=== PATIENT | male | born 1950 | race Caucasian/White ===

== ENCOUNTER → 2020-04-02 09:22 | Outpatient (BNVA) | payer BC, SELFPAY | PROVIDERS: PCP Family Medicine; Visit Provider Hospitalist | DX: Z13.89 Encounter for screening for other disorder (principal) ==

== ENCOUNTER → 2021-04-02 09:43 | Outpatient (BNVA) | payer BC, SELFPAY | PROVIDERS: PCP Family Medicine; Visit Provider Hospitalist ==

== ENCOUNTER → 2021-08-19 14:17 | Outpatient (BNVA) | payer BC, SELFPAY | PROVIDERS: PCP Family Medicine; Visit Provider Psychiatry & Neurology Neurology | DX: G47.33 Obstructive sleep apnea (adult) (pediatric) (principal); G47.52 REM sleep behavior disorder; G20 Parkinson's disease; Z87.891 Personal history of nicotine dependence; Z99.89 Dependence on other enabling machines and devices | CPT/HCPCS: Q3014 ==

== ENCOUNTER → 2021-10-01 13:11 | Outpatient (BNVA) | payer BC, SELFPAY | PROVIDERS: PCP Family Medicine; Visit Provider Hospitalist | DX: Z13.89 Encounter for screening for other disorder (principal) ==

== ENCOUNTER → 2022-06-08 14:18 | Outpatient (BNVA) | payer BC, SELFPAY | PROVIDERS: PCP Family Medicine; Visit Provider Psychiatry & Neurology Neurology | DX: Z79.899 Other long term (current) drug therapy (principal) ==

== ENCOUNTER → 2022-09-22 13:45 | Outpatient (BNVA) | payer BC, SELFPAY | PROVIDERS: PCP Family Medicine; Visit Provider Psychiatry & Neurology Neurology | DX: Z13.89 Encounter for screening for other disorder (principal) ==

== ENCOUNTER 2023-01-25 14:05 | Outpatient (AMB) | payer BC, SELFPAY ==
--- NOTE | 2023-01-25 14:02 | MHC.OFFVIS ---
Intake Intake Visit Reasons: 3 mnts f/u appt-confirmed Allergies No Known Allergies Allergy (Verified 09/22/22 13:50) PFSH Medical History Abnormal endoscopy of upper gastrointestinal tract Diabetes Hyperlipidemia MADISON on CPAP Surgical History H/O colonoscopy Family History Mother CAD (coronary artery disease) Father Leukemia Other HTN (hypertension) Social History Alcohol intake: current Alcohol intake frequency: holidays/special occasions only Patient Tobacco Use Status: Former Tobacco user Tobacco use type: Cigarette Years Smoked: 10 Years Coding Diagnoses
[2023-01-25 14:06] VITALS: BP 118/72; PULSE 88; O2SAT 94; BMI 33.5
--- NOTE | 2023-01-25 14:06 | MHC.OFFVIS ---
Intake Vital Signs 01/25/23 14:06 Height 5 ft 8 in Weight 220 lb 8 oz BMI 33.5 BP 118/72 Blood Pressure Location Lt brachial Position Sitting Pulse 88 Pulse Source Pulse Oximeter Pulse Oximetry (%) 94 Oxygen Delivery Method Room Air Intake Visit Reasons: 3 mnts f/u appt-confirmed Intake Note: Pt presents to the office today for a 3 month follow up. Pt states he is still using his CPAP machine every night. Pt states he thinks the CPAP is helping. His states he still has some night terrors occasionally and she noticed his right hand has been a little more shaky. Accompanied by: Spouse Allergies No Known Allergies Allergy (Verified 01/25/23 14:09) HPI HPI Comments History of Present Illness Details 72-year-old male comes for follow-up of Parkinsons disease and sleep apnea. He reports REM behavior disorder is better with clonazepam and melatonin 5mg qhs 1-2 times a week he still has some RBD.No injuries. He says his medications are helping but the symptoms have mildly progressed. His right hand tremors are more persistent now. He is active. Sinemet 25/100 2 tabs tid is helping He reports word finding difficulty . He golfs in summer and stays active in winter by walking. He denies any falls . he denies any memory issues no hallucinations. He is compliant with CPAP 99% compliance. AHI 5 He is independent in all ADLS Bowel movements are regular [facility] Medical History Abnormal endoscopy of upper gastrointestinal tract Diabetes Hyperlipidemia MADISON on CPAP Surgical History H/O colonoscopy Family History Mother CAD (coronary artery disease) Father Leukemia Other HTN (hypertension) Social History Alcohol intake: current Alcohol intake frequency: holidays/special occasions only Patient Tobacco Use Status: Former Tobacco user Tobacco use type: Cigarette Years Smoked: 10 Years Physical Exam Vital Signs: Last Vital Signs Pulse 88 01/25/23 14:06 BP 118/72 01/25/23 14:06 Pulse Ox 94 01/25/23 14:06 Oxygen Delivery Method Room Air 01/25/23 14:06 BMI result Body Mass Index 33.5 Const General: cooperative, healthy appearing and comfortable Nutritional Appearance: overweight Orientation/consciousness: patient oriented x3 Neuro Other: Mild decreased facial expression and blink. Speech normal. Right UE mild rest tremors noticed. Mild decrease fine finger movements and foot taps right more than left. Mild stoop and good stride , severely decreased arm swing on the right Speech softer Hunter 1 cog wheel rigidty General: patient oriented x3 Motor exam (neuro): 5/5 motor strength present throughout Assessment & Plan Assessment & Plan (1) Parkinson's disease: Code(s): G20 - Parkinson's disease (2) REM behavioral disorder: Code(s): G47.52 - REM sleep behavior disorder (3) MADISON on CPAP: Code(s): G47.33 - Obstructive sleep apnea (adult) (pediatric); Z99.89 - Dependence on other enabling machines and devices Plan carbidopa levodopa 25/100 2 tabs 3 times a day. Continue citalopram 20 mg per day. Increase cloanzepam 1mg qhs Continue melatonin 5 mg q.h.s. and titrate up to 10 mg q.h.s. for REM behavior disorder. Continue CPAP and compliance stressed. Medications: Changed From clonazepam 1/2 to 1tab qhs orally bedtime; administer 30 minutes before bedtime 30 tabs 3RF To clonazepam 1/2 to 1tab qhs orally bedtime; administer 30 minutes before bedtime 30 tabs 3RF Coding Level of Care Code Est Pt Level 4 (23204) Diagnoses Parkinson's disease G20 REM behavioral disorder G47.52 MADISON on CPAP G47.33; Z99.89
== END 2023-01-25 14:26 | disposition home or self-care (01) ==
PROVIDERS: Visit Provider Psychiatry & Neurology Neurology
DX: G20 Parkinson's disease (principal); G47.52 REM sleep behavior disorder; G47.33 Obstructive sleep apnea (adult) (pediatric); Z99.89 Dependence on other enabling machines and devices
CPT/HCPCS: 99214

== ENCOUNTER → 2023-01-25 14:05 | Outpatient (BNVA) | payer BC, SELFPAY | PROVIDERS: Visit Provider Psychiatry & Neurology Neurology | DX: G20 Parkinson's disease (principal); G47.52 REM sleep behavior disorder; G47.33 Obstructive sleep apnea (adult) (pediatric); Z99.89 Dependence on other enabling machines and devices ==

== ENCOUNTER 2023-03-28 14:32 | Outpatient (AMB) | payer BC, SELFPAY ==
[2023-03-28 14:32] VITALS: BP 132/72; PULSE 75; O2SAT 97; BMI 34.0
--- NOTE | 2023-03-28 14:32 | A.OFFVIS_ITS ---
Intake Vital Signs 03/28/23 14:32 Height 5 ft 8 in Weight 223 lb 12.307 oz BMI 34.0 BP 132/72 Blood Pressure Location Rt brachial Position Sitting Pulse 75 Pulse Source Doppler Pulse Oximetry (%) 97 Oxygen Delivery Method Room Air Intake Visit Reasons: Dyspnea Allergies No Known Allergies Allergy (Verified 03/28/23 14:36) HPI HPI Comments History of Present Illness Details The patient is a 72-year-old gentleman with a known history of obstructive sleep apnea. He has been tolerating his CPAP therapy without any difficulty for many years. The CPAP therapy continues to be affecting beneficial. He does have underlying cardiovascular risk factors. He does uses CPAP more than 4 hours a night. He has been having issues in the being able to get supplies from his [employer] company. Will make sure to resolve that issue. In the meantime also requested to download to further adjust his PAP therapy. Otherwise he is without any other respiratory complaints. 03/28/2023 the patient is here for a [facility] follow-up visit. The patient overall is doing well. He continues to tolerate the CPAP without any difficulties. He does use a fullface mask. No significant leakage. His AHI continues to be below 5. He does use it for more than 4 hours a night. Appears to the Parkinson's disease is stable. Will continue with current CPAP settings and will request additional supplies to be provided for the patient. Denies any respiratory complaints. Will follow in a year's time. [facility] Medical History Abnormal endoscopy of upper gastrointestinal tract Diabetes Hyperlipidemia MADISON on CPAP Surgical History H/O colonoscopy Family History Mother CAD (coronary artery disease) Father Leukemia Other HTN (hypertension) Social History Alcohol intake: current Alcohol intake frequency: holidays/special occasions only Patient Tobacco Use Status: Former Tobacco user Tobacco use type: Cigarette Years Smoked: 10 Years Review of Systems Const Denies night sweats ENT Denies change in voice, Denies lip swelling, Denies mouth pain and Denies tongue swelling Card Denies chest pain Resp Reports cough GI Denies abdominal pain Musc Denies no additional complaints Neuro Reports Neuro-related abnormal movements and Reports tremor(s) Psych Denies no additional complaints Sahil/Lymph Denies easy bleeding and Denies lymphadenopathy Aller/Immun Denies lip swelling and Denies tongue swelling Physical Exam Vital Signs: Last Vital Signs Pulse 75 03/28/23 14:32 BP 132/72 03/28/23 14:32 Pulse Ox 97 03/28/23 14:32 Oxygen Delivery Method Room Air 03/28/23 14:32 BMI result Body Mass Index 34.0 Const General: alert and other (tremor) Neck Neck: Yes normal visual inspection, Yes full ROM and Yes no lymphadenopathy Chest Chest palpation & inspection: normal inspection of the chest Resp Effort & Inspection: normal respiratory effort Auscultation: diminished lung sounds Cardio Rate: regular rate Rhythm: regular rhythm Heart sounds: S1 normal heart sound present and S2 normal heart sound present GI Palpation (GI): Soft to palpation and nontender Auscultation: normal bowel sounds Skin General skin exam: rashes and/or lesions noted Neuro Motor exam (neuro): Tremors during motor activity present Extrem General: Yes no clubbing, cyanosis or edema Assessment & Plan Assessment & Plan (1) MADISON on CPAP: Code(s): G47.33 - Obstructive sleep apnea (adult) (pediatric); Z99.89 - Dependence on other enabling machines and devices Plan: Continue APAP therapy. Needs to get supplies from his DME ([employer]) Plan APAP 8-14 F/U 12 months Coding Level of Care Code Est Pt Level 3 (83703) Diagnoses MADISON on CPAP G47.33; Z99.89 Time Spent (min) 15
== END 2023-03-28 14:49 | disposition home or self-care (01) ==
PROVIDERS: PCP Family Medicine; Visit Provider Hospitalist
DX: G47.33 Obstructive sleep apnea (adult) (pediatric) (principal); Z99.89 Dependence on other enabling machines and devices
CPT/HCPCS: 99213

== ENCOUNTER → 2023-03-28 14:32 | Outpatient (BNVA) | payer BC, SELFPAY | PROVIDERS: PCP Family Medicine; Visit Provider Hospitalist ==

== ENCOUNTER 2023-06-01 13:49 | Outpatient (AMB) | payer BC, SELFPAY ==
--- NOTE | 2023-06-01 13:53 | MHC.OFFVIS ---
Intake Vital Signs 06/01/23 13:58 Height 5 ft 8 in Weight 223 lb 8 oz BMI 34.0 BP 156/92 H Blood Pressure Location Rt brachial Position Sitting Respiration 15 Pulse 61 Pulse Source Pulse Oximeter Pulse Oximetry (%) 96 Oxygen Delivery Method Room Air Intake Visit Reasons: 4m follow up - Confirmed Intake Note: Pt presents to the office for a 4 month follow up for Parkinson's and MADISON with CPAP. Hitcher Required: No Allergies No Known Allergies Allergy (Verified 06/01/23 14:03) Medication List - Last Reconciled 06/01/23 by Carrie Cleveland MD atorvastatin 80 mg PO DAILY carbidopa-levodopa 25-100 mg 2 tabs PO TID 90 days citalopram 20 mg PO DAILY clonazepam 1/2 to 1tab qhs orally bedtime; administer 30 minutes before bedtime CPAP (CPAP Machine/Device) As directed flu vacc [id number](65yr up)-PF mL IM losartan 50 mg PO DAILY melatonin 5 mg PO .qhs metformin ER 500 mg PO BID omeprazole 20 mg PO DAILY HPI HPI Comments History of Present Illness Details 73-year-old male comes for follow-up of Parkinsons disease and sleep apnea( sees Dr. Foote) He reports REM behavior disorder and is on clonazepam and melatonin 5mg qhs 1-2 times a week he still has some RBD. No injuries. His anxiety is worse. He says his medications are helping but the symptoms have mildly progressed. His right hand tremors are more persistent now. He is active. Sinemet 25/100 2 tabs tid is helping He reports word finding difficulty . He golfs in summer and stays active in winter by walking. He denies any falls . he denies any memory issues no hallucinations. He is compliant with CPAP 99% compliance. AHI 5 He is independent in all ADLS Bowel movements are regular [facility] Medical History (Updated 06/01/23 @ 14:33 by Carrie Cleveland MD) Parkinson's disease without dyskinesia or fluctuating manifestations Hyperlipidemia Diabetes Abnormal endoscopy of upper gastrointestinal tract MADISON on CPAP Surgical History H/O colonoscopy Family History Mother CAD (coronary artery disease) Father Leukemia Other HTN (hypertension) Social History Alcohol intake: current Alcohol intake frequency: holidays/special occasions only Patient Tobacco Use Status: Former Tobacco user Tobacco use type: Cigarette Years Smoked: 10 Years Physical Exam Vital Signs: Last Vital Signs Pulse 61 06/01/23 13:58 Resp 15 06/01/23 13:58 BP 156/92 H 06/01/23 13:58 Pulse Ox 96 06/01/23 13:58 Oxygen Delivery Method Room Air 06/01/23 13:58 BMI result Body Mass Index 34.0 Const General: cooperative, healthy appearing and comfortable Nutritional Appearance: overweight Orientation/consciousness: patient oriented x3 Neuro Other: Mild decreased facial expression and blink. Speech normal. Right UE mild rest tremors noticed. Mild decrease fine finger movements and foot taps right more than left. Mild stoop and good stride , severely decreased arm swing on the right Speech softer Hunter 1 cog wheel rigidty General: patient oriented x3 Motor exam (neuro): 5/5 motor strength present throughout Assessment & Plan Assessment & Plan (1) Parkinson's disease without dyskinesia or fluctuating manifestations: Code(s): G20.A1 - Parkinson's disease without dyskinesia, without mention of fluctuations (2) MADISON on CPAP: Code(s): G47.33 - Obstructive sleep apnea (adult) (pediatric); Z99.89 - Dependence on other enabling machines and devices (3) REM behavioral disorder: Code(s): G47.52 - REM sleep behavior disorder Plan Increase melatonin 10mg qhs clonazepam 1 mg qhs sinemet 25/100 2tabs tid PT- [facility] Coding Level of Care Code Est Pt Level 4 (52088) Diagnoses Parkinson's disease without dyskinesia or fluctuating manifestations G20.A1 MADISON on CPAP G47.33; Z99.89 REM behavioral disorder G47.52
[2023-06-01 13:58] VITALS: BP 156/92; PULSE 61; RESP 15; O2SAT 96; BMI 34.0
== END 2023-06-01 14:42 | disposition home or self-care (01) ==
PROVIDERS: PCP Family Medicine; Visit Provider Psychiatry & Neurology Neurology
DX: G20.A1 Parkinson's disease without dyskinesia, without mention of fluctuations (principal); G47.33 Obstructive sleep apnea (adult) (pediatric); Z99.89 Dependence on other enabling machines and devices; G47.52 REM sleep behavior disorder
CPT/HCPCS: 99214

== ENCOUNTER → 2023-06-01 13:49 | Outpatient (BNVA) | payer BC, SELFPAY | PROVIDERS: PCP Family Medicine; Visit Provider Psychiatry & Neurology Neurology | DX: G47.52 REM sleep behavior disorder (principal); G47.33 Obstructive sleep apnea (adult) (pediatric); Z99.89 Dependence on other enabling machines and devices ==

== ENCOUNTER 2024-02-13 13:50 | Outpatient (AMB) | payer OTHER, SELFPAY ==
--- NOTE | 2024-02-13 14:01 | MHC.OFFVIS ---
Vital Signs 02/13/24 14:02 Height 5 ft 8 in Weight 213 lb BMI 32.4 BP 98/60 Blood Pressure Location Rt brachial Position Sitting Respiration 16 Pulse 88 Pulse Source Pulse Oximeter Pulse Oximetry (%) 96 Oxygen Delivery Method Room Air Intake Visit Reasons: 6 mon follow up Intake Note: Pt presents to the office for 8 month follow up for MADISON. Operations Architect Required: No Allergies No Known Allergies Allergy (Verified 02/13/24 14:01) HPI Comments Details: 73-year-old male comes for follow-up of Parkinsons disease and sleep apnea( sees Dr. Foote) Parkinsons is stable.he reports tongue movements - dyskinesias usually towards the later part of the day. It does not bother him. He reports REM behavior disorder and is on clonazepam and melatonin 5mg qhs and is better. He had 2 episodes since last visit. He drinks 2 beers day , more on weekends , once in a while he drinks hard liquor . His anxiety is stable. His reports a brief staring episode 3- 4 times since last visit lasting 3- sec to 1 min. His right hand tremors are more persistent now. He is active. Sinemet 25/100 2 tabs tid is helping He reports word finding difficulty . He golfs in summer and stays active in winter by walking. He denies any falls . he denies any memory issues no hallucinations. He is compliant with CPAP 99% compliance. AHI 5 He is independent in all ADLS Bowel movements are regular [facility] Medical History Parkinson's disease without dyskinesia or fluctuating manifestations Hyperlipidemia Diabetes Abnormal endoscopy of upper gastrointestinal tract MADISON on CPAP Surgical History H/O colonoscopy Family History Mother CAD (coronary artery disease) Father Leukemia Other HTN (hypertension) Social History Alcohol intake: current Alcohol intake frequency: holidays/special occasions only Patient Tobacco Use Status: Former Tobacco user Tobacco use type: Cigarette Years Smoked: 10 Years Physical Exam Vital Signs: Last Vital Signs Pulse 88 02/13/24 14:02 Resp 16 02/13/24 14:02 BP 98/60 02/13/24 14:02 Pulse Ox 96 02/13/24 14:02 Oxygen Delivery Method Room Air 02/13/24 14:02 BMI result Body Mass Index 32.4 Const General: cooperative, healthy appearing and comfortable Nutritional Appearance: overweight Orientation/consciousness: oriented to time and patient oriented x3 Neuro Other: Abnormal tongue movements and tongue tremors. Mild decreased facial expression and blink. Speech normal. Right UE mild rest tremors noticed. Mild decrease fine finger movements and foot taps right more than left. Mild stoop and good stride , severely decreased arm swing on the right Speech softer Hunter 1 cog wheel rigidty General: oriented to time and patient oriented x3 Motor exam (neuro): 5/5 motor strength present throughout Assessment & Plan Assessment & Plan (1) Parkinson's disease without dyskinesia or fluctuating manifestations: Code(s): G20.A1 - Parkinson's disease without dyskinesia, without mention of fluctuations Category: Medical (2) MADISON on CPAP: Code(s): G47.33 - Obstructive sleep apnea (adult) (pediatric); Z99.89 - Dependence on other enabling machines and devices Category: Medical (3) REM behavioral disorder: Code(s): G47.52 - REM sleep behavior disorder Category: Medical Plan melatonin 5 mg qhs clonazepam 1 mg qhs sinemet 25/100 2tabs tid will consider PT for winter Counselled about decreased alcohol intake Coding Level of Care Code Est Pt Level 4 (17776) Complex EM visit Add On G2211 Diagnoses Parkinson's disease without dyskinesia or fluctuating manifestations G20.A1 MADISON on CPAP G47.33; Z99.89 REM behavioral disorder G47.52
[2024-02-13 14:02] VITALS: BP 98/60; PULSE 88; RESP 16; O2SAT 96; BMI 32.4
== END 2024-02-13 14:34 | disposition home or self-care (01) ==
PROVIDERS: PCP Family Medicine; Visit Provider Psychiatry & Neurology Neurology
DX: G20.A1 Parkinson's disease without dyskinesia, without mention of fluctuations (principal); G47.33 Obstructive sleep apnea (adult) (pediatric); Z99.89 Dependence on other enabling machines and devices; G47.52 REM sleep behavior disorder
CPT/HCPCS: 99214; G2211

== ENCOUNTER → 2024-02-13 13:50 | Outpatient (BNVA) | payer OTHER, SELFPAY | PROVIDERS: PCP Family Medicine; Visit Provider Psychiatry & Neurology Neurology | DX: G20.A1 Parkinson's disease without dyskinesia, without mention of fluctuations (principal); G47.33 Obstructive sleep apnea (adult) (pediatric); G47.52 REM sleep behavior disorder; Z99.89 Dependence on other enabling machines and devices; Z71.41 Alcohol abuse counseling and surveillance of alcoholic | CPT/HCPCS: 99212 ==

== ENCOUNTER 2024-03-27 14:25 | Outpatient (AMB) | payer MEDICARE, SELFPAY ==
--- NOTE | 2024-03-27 14:27 | MHC.OFFVIS ---
Vital Signs 03/27/24 14:28 Weight 219 lb 5.759 oz BP 120/62 Blood Pressure Location Lt brachial Position Sitting Pulse 72 Pulse Source Pulse Oximeter Pulse Oximetry (%) 94 Oxygen Delivery Method Room Air Intake Visit Reasons: Obstructive sleep apnea Intake Note: trouble getting CPAP supplies Allergies No Known Allergies Allergy (Verified 03/27/24 14:32) Medication List - Last Reconciled 03/27/24 by Salma Scott LPN atorvastatin 80 mg PO DAILY carbidopa-levodopa 25-100 mg 2 tabs PO TID 90 days citalopram 20 mg PO DAILY clonazepam 1/2 to 1tab qhs orally bedtime; administer 30 minutes before bedtime CPAP (CPAP Machine/Device) As directed flu vacc [id number](65yr up)-PF mL IM losartan 50 mg PO DAILY melatonin 5 mg PO .qhs metformin ER 500 mg PO BID omeprazole 20 mg PO DAILY HPI Comments Details: The patient is a 73-year-old gentleman with a known history of obstructive sleep apnea. He has been tolerating his CPAP therapy without any difficulty for many years. The CPAP therapy continues to be affecting beneficial. He does have underlying cardiovascular risk factors. He does uses CPAP more than 4 hours a night. He has been having issues in the being able to get supplies from his [employer] Will make sure to resolve that issue. In the meantime also requested to download to further adjust his PAP therapy. Otherwise he is without any other respiratory complaints. 03/28/2023 the patient is here for a pulmonary follow-up visit. The patient overall is doing well. He continues to tolerate the CPAP without any difficulties. He does use a fullface mask. No significant leakage. His AHI continues to be below 5. He does use it for more than 4 hours a night. Appears to the Parkinson's disease is stable. Will continue with current CPAP settings and will request additional supplies to be provided for the patient. Denies any respiratory complaints. Will follow in a year's time. 03/27/2024 the patient is here for a pulmonary follow-up visit. Overall he is doing okay. He continues uses CPAP every night. He did bring his CPAP with him. He has a [employer]. I did download the data. His AHI is 5.3. He is using it an average of 7 hours. The therapy has been affecting beneficial. Although with his insurance we had to change DME companies. We are switching over from and to regional. I did call region to make sure they had all the information and they do in the waiting for approval from the insurance company. Based on the fact that his AHI was a little elevated I did increase the pressures from 8-14 to 9-16. Therefore, will he will try the higher pressure and wait for new supplies from the DME company. If any issues arise he will call. From a respiratory status doing okay. He does have the Parkinson's. No difficulty swallowing that he has noticed as of yet. No significant shortness of breath. [facility] Medical History Parkinson's disease without dyskinesia or fluctuating manifestations Hyperlipidemia Diabetes Abnormal endoscopy of upper gastrointestinal tract MADISON on CPAP Surgical History H/O colonoscopy Family History Mother CAD (coronary artery disease) Father Leukemia Other HTN (hypertension) Social History Alcohol intake: current Alcohol intake frequency: holidays/special occasions only Patient Tobacco Use Status: Former Tobacco user Tobacco use type: Cigarette Years Smoked: 10 Years Review of Systems Const Denies night sweats ENT Denies change in voice, Denies lip swelling, Denies mouth pain and Denies tongue swelling Card Denies chest pain Resp Reports cough GI Denies abdominal pain Musc Denies no additional complaints Neuro Reports Neuro-related abnormal movements and Reports tremor(s) Psych Denies no additional complaints Sahil/Lymph Denies easy bleeding and Denies lymphadenopathy Aller/Immun Denies lip swelling and Denies tongue swelling Physical Exam Vital Signs: Last Vital Signs Pulse 72 03/27/24 14:28 BP 120/62 03/27/24 14:28 Pulse Ox 94 03/27/24 14:28 Oxygen Delivery Method Room Air 03/27/24 14:28 Const General: alert and other (tremor) Neck Neck: Yes normal visual inspection, Yes full ROM and Yes no lymphadenopathy Chest Chest palpation & inspection: normal inspection of the chest Resp Effort & Inspection: normal respiratory effort Auscultation: diminished lung sounds Cardio Rate: regular rate Rhythm: regular rhythm Heart sounds: S1 normal heart sound present and S2 normal heart sound present GI Palpation (GI): Soft to palpation and nontender Auscultation: normal bowel sounds Skin General skin exam: rashes and/or lesions noted Neuro Motor exam (neuro): Tremors during motor activity present Extrem General: Yes no clubbing, cyanosis or edema Assessment & Plan Assessment & Plan (1) MADISON on CPAP: Code(s): G47.33 - Obstructive sleep apnea (adult) (pediatric); Z99.89 - Dependence on other enabling machines and devices Category: Medical Plan: Continue APAP therapy. Needs to get supplies from his DME ([facility]) Plan APAP 814->9-16 Needs PAP supplies [facility] due to [facility] F/U 12 months Coding Level of Care Code Est Pt Level 4 (49137) Diagnoses MADISON on CPAP G47.33; Z99.89 Time Spent (min) 16
[2024-03-27 14:28] VITALS: BP 120/62; PULSE 72; O2SAT 94
== END 2024-03-27 14:48 | disposition home or self-care (01) ==
LOC: HO.HPS 14:26
PROVIDERS: PCP Family Medicine; Visit Provider Hospitalist
DX: G47.33 Obstructive sleep apnea (adult) (pediatric) (principal); Z99.89 Dependence on other enabling machines and devices
CPT/HCPCS: 99214

== ENCOUNTER → 2024-03-27 14:25 | Outpatient (BNVA) | payer MEDICARE, SELFPAY | PROVIDERS: PCP Family Medicine; Visit Provider Hospitalist | DX: G47.33 Obstructive sleep apnea (adult) (pediatric) (principal); Z99.89 Dependence on other enabling machines and devices | CPT/HCPCS: 99212 ==

== ENCOUNTER 2024-07-20 13:51 | Outpatient (AMB) | payer MEDICARE, SELFPAY ==
--- NOTE | 2024-07-20 14:01 | A.OFFVIS_ITS ---
Vital Signs 07/20/24 14:02 Height 5 ft 8 in Weight 220 lb BMI 33.4 BP 110/70 Blood Pressure Location Rt brachial Position Sitting Pulse 85 Pulse Source Pulse Oximeter Pulse Oximetry (%) 96 Oxygen Delivery Method Room Air Intake Visit Reasons: 6 mon follow up Intake Note: follow up parkinson's disease compliance report scanned. Allergies No Known Allergies Allergy (Verified 07/20/24 14:04) Medication List - Last Reconciled 07/20/24 by Carrie Cleveland MD ascorbic acid (vitamin C) 1 g PO Q6H atorvastatin 80 mg PO DAILY carbidopa-levodopa 25-100 mg 2 tabs PO TID 90 days citalopram 20 mg PO DAILY clonazepam 1/2 to 1tab qhs orally bedtime; administer 30 minutes before bedtime CPAP (CPAP Machine/Device) As directed flu vacc [id number](65yr up)-PF mL IM losartan 50 mg PO DAILY melatonin 5 mg PO .qhs metformin ER 500 mg PO BID multivitamin 1 tab PO DAILY omega 0-rqn-liu-fish oil 100-160-1,000 mg (Fish Oil) caps PO omeprazole 20 mg PO DAILY HPI Comments Details: 74-year-old male comes for follow-up of Parkinsons disease and sleep apnea( sees Dr. Foote) Parkinsons is stable.he reports tongue movements - dyskinesias usually towards the later part of the day. It does not bother him. He reports REM behavior disorder and is on clonazepam and melatonin 5mg qhs and he still has vivid dreams 5 days a night. He drinks 2 beers day , more on weekends , once in a while he drinks hard liquor . His anxiety is stable. His right hand tremors are more persistent now. He is active. Sinemet 25/100 2 tabs tid is helping He reports word finding difficulty . He golfs in summer and stays active in winter by walking. He denies any falls . he denies any memory issues no hallucinations. He is independent in all ADLS Bowel movements are regular [facility] Medical History Parkinson's disease without dyskinesia or fluctuating manifestations Hyperlipidemia Diabetes Abnormal endoscopy of upper gastrointestinal tract MADISON on CPAP Surgical History H/O colonoscopy Family History Mother CAD (coronary artery disease) Father Leukemia Other HTN (hypertension) Social History Alcohol intake: current Alcohol intake frequency: holidays/special occasions only Patient Tobacco Use Status: Former Tobacco user Tobacco use type: Cigarette Years Smoked: 10 Years Physical Exam Vital Signs: Last Vital Signs Pulse 85 07/20/24 14:02 BP 110/70 07/20/24 14:02 Pulse Ox 96 07/20/24 14:02 Oxygen Delivery Method Room Air 07/20/24 14:02 BMI result Body Mass Index 33.4 Const General: cooperative, healthy appearing and comfortable Nutritional Appearance: overweight Orientation/consciousness: oriented to time and patient oriented x3 Neuro Other: Abnormal tongue movements and tongue tremors. Mild decreased facial expression and blink. Speech normal. Right UE mild rest tremors noticed. Mild decrease fine finger movements and foot taps right more than left. Mild stoop and good stride , severely decreased arm swing on the right Speech softer Hunter 1 cog wheel rigidty General: oriented to time and patient oriented x3 Motor exam (neuro): 5/5 motor strength present throughout Assessment & Plan Assessment & Plan (1) Parkinson's disease without dyskinesia or fluctuating manifestations: Code(s): G20.A1 - Parkinson's disease without dyskinesia, without mention of fluctuations Category: Medical (2) MADISON on CPAP: Code(s): G47.33 - Obstructive sleep apnea (adult) (pediatric); Z99.89 - Dependence on other enabling machines and devices Category: Medical (3) REM behavioral disorder: Code(s): G47.52 - REM sleep behavior disorder Category: Medical Plan melatonin 5 mg qhs clonazepam 1 mg qhs Change sinemet 25/100 1 1 /2 tabs at 8am 12 noon, 4 pm, 8 pm Amantadine 100mg 1 /2 tab 8am and 1/2 at 4 pm will consider PT for winter Counselled about decreased alcohol intake Orders: Orders MR head/brain wo con Today G20.A1 - Parkinson's disease without dyskinesia, without mention of fluctuations Medications: New amantadine HCl 8.30am and 4pm 50 mg (1/2 x 100 mg) PO BID 30 tabs 6RF Coding Level of Care Code Est Pt Level 4 (85383) Complex EM visit Add On G2211 Diagnoses Parkinson's disease without dyskinesia or fluctuating manifestations G20.A1 MADISON on CPAP G47.33; Z99.89 REM behavioral disorder G47.52
[2024-07-20 14:02] VITALS: BP 110/70; PULSE 85; O2SAT 96; BMI 33.4
--- OUTSIDE RECORDS SUMMARY | 2024-07-20 14:18 | XMS_ITS | Encounter Summary ---
Author Organization [facility] Address [address] [place] [address] Care Team Providers Care Cut Press Operator Name Role Phone Chris Reddy DO Primary Care Provider Unava ilable Encounter Details Date Type Department Care Team Description 05/08/2018 Orders Only Pulmonology - [address] [place] [address] Al Foote MD Social History Tobacco Use Types Packs/Day Years Used Date Smoking Tobacco: Former Smokeless Tobacco: Never Sex Assigned at Date Recorded Not on file documented as of this encounter Plan of Treatment Not on file documented as of this encounter Visit Diagnoses Not on filedocumented in this encounter Care Teams Cut Press Operator Relationship Specialty Start Date End Date Chris Reddy DO PCP - General Family Practice 05/26/17 documented as of this encounter
--- OUTSIDE RECORDS SUMMARY | 2024-07-20 14:18 | XMS_ITS | Clinical Summary ---
Author Organization [facility] Address [address] [address] Care Team Providers Care Precision Assembly Inspector Name Role Phone Reddy, Gary Divine PIERCE Primary Care Provider [phone] Medications aspirin 81 MG chewable tablet Chew 81 mg 1 (one) time each day Active metFORMIN (GLUCOPHAGE) 500 MG tablet Take 500 mg by mouth in the morning and 500 mg in the evening. Take with meals. Active cyanocobalamin (VITAMIN B-12) 1000 MCG tablet Take 1,000 mcg by mouth 1 (one) time each day Active Active Problems Problem Noted Date Diagnosed Date Anemia in chronic kidney disease 01/25/2022 Type 2 diabetes mellitus with diabetic polyneuro aby 01/25/2022 Disorder of carotid artery 01/25/2022 Type 2 diabetes mellitus wit h diabetic autonomic (poly)neuropathy 01/25/2022 Peripheral vascular disease 01/25/2022 Prostate cancer care review done 01/25/2022 Social History Tobacco Use Types Packs/Day Years Used Date Smoking Tobacco: Former Cigarettes Smokeless Tobacco: Never Tobacco Cessation:Counseling Given: Not Answered Sex and Gender Information Value Date Recorded Sex Assigned at Not on file Legal Sex Male 1:13 PM EDT Gender Identity Not on file Sexual Orientation Not on file Plan of Treatment Health Maintenance Due Date Last Done Comments Colorectal Cancer Screening: Annual FOBT 1998 Colorectal Cancer Screening: Colonoscopy 1998 Colorectal Cancer Screening: Sigmoidoscopy 1998 Hepatitis B Vaccine (1 of 3 - Risk 3-dose series) 2009 Pneumococcal Vaccine: 65+ Ye ars (2 of 2 - PCV) 08/14/2013 08/14/2012 Diabetes: Hemoglobin A1C 02/12/2021 Diabetes: Ophthalmology Exam 02/12/2021 Diabetes: Pedal Pulse Checked 02/12/2021 Diabetes: Sensory Foot Exam 02/12/2021 Diabetes: Visual Foot Exam 02/12/2021 Influenza Vaccine (#1) 2024 9, 02/22/2013, 02/24/2012, Additional history exists Insurance [facility] Care Teams Precision Assembly Inspector Relationship Specialty Start Date End Date Chris Reddy DO [address] [place] [address] PCP - General Family Medicine 01/19/21
== END 2024-07-20 14:24 | disposition home or self-care (01) ==
PROVIDERS: PCP Family Medicine; Visit Provider Psychiatry & Neurology Neurology
DX: G20.A1 Parkinson's disease without dyskinesia, without mention of fluctuations (principal); G47.33 Obstructive sleep apnea (adult) (pediatric); Z99.89 Dependence on other enabling machines and devices; G47.52 REM sleep behavior disorder
CPT/HCPCS: 99214; G2211

== ENCOUNTER → 2024-07-20 13:51 | Outpatient (BNVA) | payer MEDICARE, SELFPAY | PROVIDERS: PCP Family Medicine; Visit Provider Psychiatry & Neurology Neurology | DX: G20.A1 Parkinson's disease without dyskinesia, without mention of fluctuations (principal); G47.33 Obstructive sleep apnea (adult) (pediatric); G47.52 REM sleep behavior disorder; Z99.89 Dependence on other enabling machines and devices | CPT/HCPCS: 99212 ==

== ENCOUNTER 2024-11-21 13:46 | Outpatient (AMB) | payer MEDICARE, SELFPAY ==
[2024-11-21 13:51] VITALS: BP 114/70; BMI 32.4
--- NOTE | 2024-11-21 13:51 | A.OFFVIS_ITS ---
Vital Signs 11/21/24 13:51 Height 5 ft 8 in Weight 213 lb BMI 32.4 BP 114/70 Blood Pressure Location Rt brachial Position Sitting Intake Visit Reasons: 6 mon follow up Intake Note: Patient presents for follow up brain MRI 08/22/24 Allergies No Known Allergies Allergy (Verified 11/21/24 13:52) Medication List - Last Reconciled 11/21/24 by Carrie Cleveland MD amantadine HCl 100 mg PO BID ascorbic acid (vitamin C) 1 g PO Q6H atorvastatin 80 mg PO DAILY carbidopa-levodopa 25-100 mg 2 tabs PO TID 90 days citalopram 20 mg PO DAILY clonazepam 1/2 to 1tab qhs orally bedtime; administer 30 minutes before bedtime CPAP (CPAP Machine/Device) As directed flu vacc [id number](65yr up)-PF mL IM losartan 50 mg PO DAILY melatonin 5 mg PO .qhs metformin ER 500 mg PO BID multivitamin 1 tab PO DAILY omega 0-nlj-xhv-fish oil 100-160-1,000 mg (Fish Oil) caps PO omeprazole 20 mg PO DAILY HPI Comments Details: 74-year-old male comes for follow-up of Parkinsons disease and sleep apnea( sees Dr. Foote) Parkinsons is stable.he reports tongue movements - dyskinesias usually towards the later part of the day. Amantadine helped initially but has breakthrough symptoms now. He reports REM behavior disorder and is on clonazepam and melatonin 5mg qhs and he still has 1-2 times a week. He drinks 1 beer a day His anxiety is stable. His right hand tremors are more persistent now. He is active. Sinemet 25/100 1 1/2 tabs qid t is helping He reports word finding difficulty . He golfs in summer and stays active in winter by walking. He denies any falls . he denies any memory issues no hallucinations. He is independent in all ADLS Bowel movements are regular [facility] Medical History Parkinson's disease without dyskinesia or fluctuating manifestations Hyperlipidemia Diabetes Abnormal endoscopy of upper gastrointestinal tract MADISON on CPAP Surgical History H/O colonoscopy Family History Mother CAD (coronary artery disease) Father Leukemia Other HTN (hypertension) Social History Alcohol intake: current Alcohol intake frequency: holidays/special occasions only Patient Tobacco Use Status: Former Tobacco user Tobacco use type: Cigarette Years Smoked: 10 Years Physical Exam Vital Signs: Last Vital Signs BP 114/70 11/21/24 13:51 BMI result Body Mass Index 32.4 Const General: cooperative, healthy appearing and comfortable Nutritional Appearance: overweight Orientation/consciousness: oriented to time and patient oriented x3 Neuro Other: Abnormal tongue movements and tongue tremors- milder than last visit Mild decreased facial expression and blink. Speech normal. Right UE mild rest tremors noticed. Mild decrease fine finger movements and foot taps right more than left. Mild stoop and good stride , severely decreased arm swing on the right Speech softer Hunter 1 cog wheel rigidty General: oriented to time and patient oriented x3 Motor exam (neuro): 5/5 motor strength present throughout Assessment & Plan Assessment & Plan (1) Parkinson's disease without dyskinesia or fluctuating manifestations: Code(s): G20.A1 - Parkinson's disease without dyskinesia, without mention of fluctuations Category: Medical (2) MADISON on CPAP: Code(s): G47.33 - Obstructive sleep apnea (adult) (pediatric); Z99.89 - Dependence on other enabling machines and devices Category: Medical (3) REM behavioral disorder: Code(s): G47.52 - REM sleep behavior disorder Category: Medical Plan melatonin 5 mg qhs clonazepam 1 mg qhs Change sinemet 25/100 1 1 /2 tabs at 8am 12 noon, 4 pm, 8 pm Increase Amantadine 100mg 1 tab 8am and 1 at 4 pm PT - wants in [place] Counselled about decreased alcohol intake Orders: Orders PT Evaluation and Treatment Today G20.A1 - Parkinson's disease without dyskinesia, without mention of fluctuations Medications: Changed From amantadine HCl 8.30am and 4pm 50 mg (1/2 x 100 mg) PO BID 30 tabs 6RF To amantadine HCl 8.30am and 4pm 100 mg PO BID 60 tabs 6RF Coding Level of Care Code Est Pt Level 4 (79753) Complex EM visit Add On G2211 Diagnoses Parkinson's disease without dyskinesia or fluctuating manifestations G20.A1 MADISON on CPAP G47.33; Z99.89 REM behavioral disorder G47.52
--- OUTSIDE RECORDS SUMMARY | 2024-11-21 16:21 | XMS_ITS | Patient Health Record ---
Author Organization [facility] Address [address] [place] [id number] Care Team Providers Care Tufting Creeler Name Role Phone Helder Claros Jr Reason For Referral No Information Plan Of Treatment No Information
== END 2024-11-21 14:38 | disposition home or self-care (01) ==
LOC: HO.HSMS 13:46
PROVIDERS: PCP Family Medicine; Visit Provider Psychiatry & Neurology Neurology
DX: G20.A1 Parkinson's disease without dyskinesia, without mention of fluctuations (principal); G47.33 Obstructive sleep apnea (adult) (pediatric); Z99.89 Dependence on other enabling machines and devices; G47.52 REM sleep behavior disorder
CPT/HCPCS: 99214; G2211

== ENCOUNTER → 2024-11-21 13:46 | Outpatient (BNVA) | payer MEDICARE, SELFPAY | PROVIDERS: PCP Family Medicine; Visit Provider Psychiatry & Neurology Neurology | DX: G20.A1 Parkinson's disease without dyskinesia, without mention of fluctuations (principal); G47.33 Obstructive sleep apnea (adult) (pediatric); Z99.89 Dependence on other enabling machines and devices; G47.52 REM sleep behavior disorder | CPT/HCPCS: 99212 ==

== ENCOUNTER 2025-03-26 14:31 | Outpatient (AMB) | payer MEDICARE, SELFPAY ==
[2025-03-26 14:34] VITALS: BP 110/60; PULSE 79; O2SAT 97; BMI 31.0
--- NOTE | 2025-03-26 14:34 | A.OFFVIS_ITS ---
Vital Signs 03/26/25 14:34 Height 5 ft 8 in Weight 203 lb 14.841 oz BMI 31.0 BP 110/60 Blood Pressure Location Lt brachial Position Sitting Pulse 79 Pulse Source Pulse Oximeter Pulse Oximetry (%) 97 Oxygen Delivery Method Room Air Intake Visit Reasons: Obstructive sleep apnea Topper Packer Required: No Accompanied by: Spouse Allergies No Known Allergies Allergy (Verified 03/26/25 14:38) HPI Comments Details: The patient is a 74-year-old gentleman with a known history of obstructive sleep apnea. He has been tolerating his CPAP therapy without any difficulty for many years. The CPAP therapy continues to be affecting beneficial. He does have underlying cardiovascular risk factors. He does uses CPAP more than 4 hours a night. He has been having issues in the being able to get supplies from his DME company. Will make sure to resolve that issue. In the meantime also requested to download to further adjust his PAP therapy. Otherwise he is without any other respiratory complaints. 03/28/2023 the patient is here for a pulmonary follow-up visit. The patient o caleb is doing well. He continues to tolerate the CPAP without any difficulties. He does use a fullface mask. No significant leakage. His AHI continues to be below 5. He does use it for more than 4 hours a night. Appears to the Parkinson's disease is stable. Will continue with current CPAP settings and will request additional supplies to be provided for the patient. Denies any respiratory complaints. Will follow in a year's time. 03/27/2024 the patient is here for a pulmonary follow-up visit. Overall he is doing okay. He continues uses CPAP every night. He did bring his CPAP with him. He has a dream Station 2. I did download the data. His AHI is 5.3. He is using it an average of 7 hours. The therapy has been affecting beneficial. Although with his insurance we had to change DME companies. We are switching over from and to [facility]. I did call region to make sure they had all the information and they do in the waiting for approval from the insurance company. Based on the fact that his AHI was a little elevated I did increase the pressures from 8-14 to 9-16. Therefore, will he will try the higher pressure and wait for new supplies from the DME company. If any issues arise he will call. From a respiratory status doing okay. He does have the Parkinson's. No difficulty swallowing that he has noticed as of yet. No significant shortness of breath. 03/26/2025 the patient is here for pulmonary follow-up visit. Overall the patient is doing well. He continues uses CPAP. His mask was changed to an F30 but he did not tolerate it. Therefore, he went back to the AirTouch F20 medium mask. Seems to be working well for him. He uses his CPAP every night. CPAP therapy has been affecting beneficial he does use it for more than 4 hours a night. We did adjust the pressures the last time seems to be tolerating it well. The patient denies any significant shortness of breath. He is not using any inhalers. He continues to follow closely with Neurology regarding his Parkinson's. Otherwise no other issues at this time. If any issues arise she can always call further recommendations. Otherwise follow-up in a year's time. [facility] Medical History (Updated 03/26/25 @ 20:33 by Al Foote MD) Insomnia Parkinson's disease without dyskinesia or fluctuating manifestations Hyperlipidemia Diabetes Abnormal endoscopy of upper gastrointestinal tract MADISON on CPAP Surgical History H/O colonoscopy Family History Mother CAD (coronary artery disease) Father Leukemia Other HTN (hypertension) Social History Alcohol intake: current Alcohol intake frequency: holidays/special occasions only Patient Tobacco Use Status: Former Tobacco user Tobacco use type: Cigarette Years Smoked: 10 Years Review of Systems Const Denies night sweats ENT Denies change in voice, Denies lip swelling, Denies mouth pain and Denies tongue swelling Card Denies chest pain Resp Reports cough GI Denies abdominal pain Musc Denies no additional complaints Neuro Reports Neuro-related abnormal movements and Reports tremor(s) Psych Denies no additional complaints Sahil/Lymph Denies easy bleeding and Denies lymphadenopathy Aller/Immun Denies lip swelling and Denies tongue swelling Physical Exam Vital Signs: Last Vital Signs Pulse 79 03/26/25 14:34 BP 110/60 03/26/25 14:34 Pulse Ox 97 03/26/25 14:34 Oxygen Delivery Method Room Air 03/26/25 14:34 BMI result Body Mass Index 31.0 Const General: alert and other (tremor) Neck Neck: Yes normal visual inspection, Yes full ROM and Yes no lymphadenopathy Chest Chest palpation & inspection: normal inspection of the chest Resp Effort & Inspection: normal respiratory effort Auscultation: diminished lung sounds Cardio Rate: regular rate Rhythm: regular rhythm Heart sounds: S1 normal heart sound present and S2 normal heart sound present GI Palpation (GI): Soft to palpation and nontender Auscultation: normal bowel sounds Skin General skin exam: rashes and/or lesions noted Neuro Motor exam (neuro): Tremors during motor activity present Extrem General: Yes no clubbing, cyanosis or edema Assessment & Plan Assessment & Plan (1) MADISON on CPAP: Code(s): G47.33 - Obstructive sleep apnea (adult) (pediatric); Z99.89 - Dependence on other enabling machines and devices Category: Medical Plan: Continue APAP therapy. Needs to get supplies from his DME ([employer]) (2) Insomnia: Code(s): G47.00 - Insomnia, unspecified Category: Medical Qualifiers: Insomnia type: primary Qualified Code(s): F51.01 - Primary insomnia Plan APAP 9-16 Needs PAP supplies regional continue Melatonin Behavioral sleep therapy F/U 12 months Coding Level of Care Code Est Pt Level 4 (61250) Diagnoses MADISON on CPAP G47.33; Z99.89 Primary insomnia F51.01 Insomnia type: primary Time Spent (min) 16
--- OUTSIDE RECORDS SUMMARY | 2025-03-26 18:55 | XMS_ITS | Clinical Summary ---
Author Organization [facility] Facility Address [address] [address] Care Team Providers Care Cut Roll Machine Operator Name Role Phone Reddy, Gary Divine PIERCE Primary Care Provider [phone] Medications aspirin 81 MG chewable tablet Chew [...] - Risk 3-dose series) 2009 Pneumococcal Vaccine: 50+ Ye ars (2 of 2 - PCV) 08/14/2013 08/14/2012 Diabetes: Hemoglobin A1C 02/12/2021 Diabetes: Ophthalmology Exam 02/12/2021 Diabetes: Pedal Pulse Checked 02/12/2021 Diabetes: Sensory Foot Exam 02/12/2021 Diabetes: Visual Foot Exam 02/12/2021 Influenza Vaccine (#1) 2025 9, 02/22/2013, 02/24/2012, Additional history exists Insurance [facility] Care Teams Cut Roll Machine Operator Relationship Specialty Start Date End Date Chris Reddy DO [address] [place] [address] PCP - General Family Medicine 01/19/21
--- OUTSIDE RECORDS SUMMARY | 2025-03-26 18:55 | XMS_ITS | Patient Health Record ---
Author Organization [facility] Address [address] [place] [id number] Care Team Providers Care Cooking Appliance Repair Technician Name Role Phone Helder Claros Jr Reason For Referral No Information Plan Of Treatment No Information
== END 2025-03-26 14:53 | disposition home or self-care (01) ==
LOC: HO.HPS 14:31
PROVIDERS: PCP Family Medicine; Visit Provider Hospitalist
DX: G47.33 Obstructive sleep apnea (adult) (pediatric) (principal); Z99.89 Dependence on other enabling machines and devices; F51.01 Primary insomnia
CPT/HCPCS: 99214

== ENCOUNTER → 2025-03-26 14:31 | Outpatient (BNVA) | payer MEDICARE, SELFPAY | PROVIDERS: PCP Family Medicine; Visit Provider Hospitalist | DX: G47.33 Obstructive sleep apnea (adult) (pediatric) (principal); F51.01 Primary insomnia; Z99.89 Dependence on other enabling machines and devices | CPT/HCPCS: 99212 ==

== ENCOUNTER 2025-05-15 14:22 | Outpatient (AMB) | payer MEDICARE, SELFPAY ==
--- NOTE | 2025-05-15 14:24 | MHC.OFFVIS ---
Vital Signs 05/15/25 14:25 Height 5 ft 8 in Weight 206 lb BMI 31.3 BP 108/70 Blood Pressure Location Rt brachial Position Sitting Pulse 80 Pulse Source Pulse Oximeter Pulse Oximetry (%) 96 Oxygen Delivery Method Room Air Intake Visit Reasons: 6 mnts f/u appt Intake Note: Follow up Parkinson's disease without dyskinesia or fluctuating manifestations, REM sleep behavior disorder and MADISON Pacs Specialist Required: No Accompanied by: Spouse Allergies No Known Allergies Allergy (Verified 05/15/25 14:24) Medication List - Last Reconciled 05/15/25 by Carrie Cleveland MD amantadine HCl 100 mg PO BID atorvastatin 80 mg PO DAILY carbidopa-levodopa 25-100 mg 1.5 tabs PO QID 90 days citalopram 20 mg PO DAILY clonazepam 1/2 to 1tab qhs orally bedtime; administer 30 minutes before bedtime CPAP (CPAP Machine/Device) As directed losartan 50 mg PO DAILY melatonin 5 mg PO .qhs metformin ER 500 mg PO BID multivitamin 1 tab PO DAILY omega 2-nii-qgr-fish oil 100-160-1,000 mg (Fish Oil) caps PO omeprazole 20 mg PO DAILY rasagiline 1 mg PO DAILY HPI Comments Details: 75-year-old male comes for follow-up of Parkinsons disease and sleep apnea( sees Dr. Foote) Parkinsons is stable.he reports tongue movements - dyskinesias usually towards the later part of the day. Amantadine helped initially but has breakthrough symptoms now. He feels he is slower , tremors are worse .and also anxious He reports REM behavior disorder and is on clonazepam and melatonin 5mg qhs and he still has 1-2 times a week. He drinks 1 beer a day His right hand tremors are more persistent now. He is active. Sinemet 25/100 1 1/2 tabs qid and amantadine 100mg bid t He reports word finding difficulty . He golfs in summer and stays active in winter by walking. He denies any falls . he denies any memory issues no hallucinations. He is independent in all ADLS . may need help with buttoning his shirt Bowel movements are regula [facility] Medical History Insomnia Parkinson's disease without dyskinesia or fluctuating manifestations Hyperlipidemia Diabetes Abnormal endoscopy of upper gastrointestinal tract MADISON on CPAP Surgical History H/O colonoscopy Family History Mother CAD (coronary artery disease) Father Leukemia Other HTN (hypertension) Social History Alcohol intake: current Alcohol intake frequency: holidays/special occasions only Patient Tobacco Use Status: Former Tobacco user Tobacco use type: Cigarette Years Smoked: 10 Years Physical Exam Vital Signs: Last Vital Signs Pulse 80 05/15/25 14:25 BP 108/70 05/15/25 14:25 Pulse Ox 96 05/15/25 14:25 Oxygen Delivery Method Room Air 05/15/25 14:25 BMI result Body Mass Index 31.3 Const General: cooperative, healthy appearing and comfortable Nutritional Appearance: overweight Orientation/consciousness: oriented to time and patient oriented x3 Neuro Other: Abnormal tongue movements and tongue tremors- milder than last visit Mild decreased facial expression and blink. Speech normal. Right UE mild rest tremors noticed. Mild decrease fine finger movements and foot taps right more than left. Mild stoop and good stride , severely decreased arm swing on the right Speech softer Hunter 1 cog wheel rigidty General: oriented to time and patient oriented x3 Motor exam (neuro): 5/5 motor strength present throughout Assessment & Plan Assessment & Plan (1) Parkinson's disease without dyskinesia or fluctuating manifestations: Code(s): G20.A1 - Parkinson's disease without dyskinesia, without mention of fluctuations Category: Medical (2) MADISON on CPAP: Code(s): G47.33 - Obstructive sleep apnea (adult) (pediatric); Z99.89 - Dependence on other enabling machines and devices Category: Medical (3) REM behavioral disorder: Code(s): G47.52 - REM sleep behavior disorder Category: Medical Plan melatonin 5 mg qhs clonazepam 1 mg qhs sinemet 25/100 1 1 /2 tabs at 8am 12 noon, 4 pm, 8 pm Amantadine 100mg 1 tab 8am and 1 at 4 pm Counselled about decreased alcohol intake Increase fluid intake Miralax as needed Azilect 1mg qd Medications: New rasagiline 1 mg PO DAILY 30 tabs 3RF Changed From carbidopa-levodopa 25-100 mg 2 tabs PO TID 90 days 540 tabs 6RF To carbidopa-levodopa 25-100 mg 1.5 tabs PO QID 540 tabs 6RF 90 days Coding Level of Care Code Est Pt Level 4 (44934) Add On Problem Visit Only Diagnoses Parkinson's disease without dyskinesia or fluctuating manifestations G20.A1 MADISON on CPAP G47.33; Z99.89 REM behavioral disorder G47.52
[2025-05-15 14:25] VITALS: BP 108/70; PULSE 80; O2SAT 96; BMI 31.3
--- OUTSIDE RECORDS SUMMARY | 2025-05-15 19:11 | XMS_ITS | Clinical Summary ---
Author Organization [facility] Prior to 03/30/2024 Address [address] [place] [address] Care Team Providers Care Apparel Cutter Name Role Phone Chris Reddy DO Primary Care Provider Unava ilable Allergies Active Allergy Reactions Severity Noted Date Comments No Known Drug Allergies 06/14/2011 Medications Medication Sig Dispensed Refills Start Date End Date Status aspirin 81 MG EC tablet Take 81 mg by mouth daily. 0 Active Omeprazole 20 MG Tab EC Take by mouth. 0 Active [place]-3 Fatty Acids (FISH OIL) 1000 MG Cap Take by mouth. 0 Active lovastatin (MEVACOR) 20 MG tablet Take 20 mg by mouth at bedtime. 2 tabs 0 Active Active Problems Problem Noted Date Fatty liver 05/01/2017 Diabetes mellitus type 2, uncomplicated 05/01/2017 History of pneumothorax 05/01/2017 Overview: S/p pleural scarification History of herpes zoster 05/01/2017 Obstructive sleep apnea syndrome 017 Overview: CPAP Diverticulosis of intestine 01/27/2015 Gastroesophageal reflux disease 01/28/20 15 Hyperlipidemia 09/17/2014 Restless leg 02/24/2012 Actinic keratosis 03/04/2011 Immunizations Name Administration Dates Next Due Influenza (>6 Months) Split Preservative Free 02/22/2013,02/24/2012,02/25/2011 Pneumoccoccal(Adult) Polysaccharide PPSV23 08/14 Tdap 08/15/2014 Social History Tobacco Use Types Packs/Day Years Used Date Smoking Tobacco: Former Smokeless Tobacco: Never Sex Assigned at Date Recorded Not on file Last Filed Vital Signs Vital Sign Reading Time Taken Comments Blood Pressure 120/80 02/03/2018 1:49 PM EDT Pulse 73 02/03/2018 1:49 PM EDT Temperature - - Respiratory Rate - - Oxygen Saturation 95% 02/03/2018 1:49 PM EDT r/a Inhaled Oxygen Concentration - - Weight 102.1 kg (225 lb) 02/03/2018 1:49 PM EDT Height 172.7 cm (5' 8 ) 02/03/2018 1:49 PM EDT Body Mass Index 34.21 02/03/2018 1:49 PM EDT Plan of Treatment Health Maintenance Due Date Last Done Comments Covid-19 Vaccine (#1) 1950 DIABETES/HEART DISEASE: [place] CHOLESTEROL (LDL) 1968 DIABETES: ANNUAL EYE EXAM 1968 DIABETES: ANNUAL FOOT EXAM 1968 DIABETES: ANNUAL URINE PROTE IN TEST (MICROALBUMIN) 1968 DIABETES: BLOOD SUGAR CONTRO L TEST (HGBA1C) 1967 HEPATITIS C SCREENING 1967 SHINGLES VACCINE (1 of 2) 1999 PNEUMOCOCCAL VACCINE (2 - PCV) 2014 08/14/2012 BMI CHECK/ADVISE 05/30/2024 02/03/2018, , 05/26/2017 DTAP/TDAP/TD (2 - Td or Tdap) 08/15/2024 08/15/2014 INFLUENZA (#1) 2025 02/22/2013, 01/29, 02/25/2011 Care Teams Apparel Cutter Relationship Specialty Start Date End Date Chris Reddy DO PCP - General Family Practice 05/26/17
--- OUTSIDE RECORDS SUMMARY | 2025-05-15 19:11 | XMS_ITS | Encounter Summary ---
Author Organization [facility] Prior to 03/30/2024 Address [address] [place] [address] Care Team Providers Care Paramedic Instructor Name Role Phone Chris Reddy DO Primary Care Provider Unava ilable Encounter Details Date Type Department Care Team Description 06/03/2017 Transfer Records Medical Records [address] [place] [id number] Abstract, Provider Social History Tobacco Use Types Packs/Day Years Used Date Smoking Tobacco: Former Smokeless Tobacco: Never Sex Assigned at Date Recorded Not on file documented as of this encounter Plan of Treatment Not on file documented as of this encounter Procedures Procedure Name Priority Date/Time Associated Diagnosis Comments OUTSIDE SLEEP STUDY Routine 07/22/2011 documented in this encounter Results * OUTSIDE SLEEP STUDY (07/22/2011) Provider Abstract PULMONOLOGY documented in this encounter Visit Diagnoses Not on filedocumented in this encounter Care Teams Paramedic Instructor Relationship Specialty Start Date End Date Chris Reddy DO PCP - General Family Practice 05/26/17 documented as of this encounter
--- OUTSIDE RECORDS SUMMARY | 2025-05-15 19:11 | XMS_ITS | Patient Health Record ---
Author Organization [facility] Address [address] [place] [id number] Care Team Providers Care Head Of Physics Name Role Phone Helder Claros Jr Reason For Referral No Information Plan Of Treatment No Information
== END 2025-05-15 15:00 | disposition home or self-care (01) ==
LOC: HO.HSMS 14:23
PROVIDERS: PCP Family Medicine; Visit Provider Psychiatry & Neurology Neurology
DX: G20.A1 Parkinson's disease without dyskinesia, without mention of fluctuations (principal); G47.33 Obstructive sleep apnea (adult) (pediatric); Z99.89 Dependence on other enabling machines and devices; G47.52 REM sleep behavior disorder
CPT/HCPCS: 99214; G2211

== ENCOUNTER → 2025-05-15 14:22 | Outpatient (BNVA) | payer MEDICARE, SELFPAY | PROVIDERS: PCP Family Medicine; Visit Provider Psychiatry & Neurology Neurology | DX: G20.A1 Parkinson's disease without dyskinesia, without mention of fluctuations (principal); G47.52 REM sleep behavior disorder; G47.33 Obstructive sleep apnea (adult) (pediatric); Z99.89 Dependence on other enabling machines and devices; Z71.41 Alcohol abuse counseling and surveillance of alcoholic; Z79.899 Other long term (current) drug therapy | CPT/HCPCS: 99212 ==